=== PATIENT | male | born 1995 | race African-American/Black ===

== ENCOUNTER 2020-04-07 14:34 | Emergency (ER) | payer MEDICAID ==
[~2020-04-07] VITALS: Ht 177.8 cm; Wt 81.6 kg
[2020-04-07 14:46] VITALS: Ht 177.8 cm; Wt 81.6 kg
[2020-04-07 18:24] VITALS: BP 138/84
== END 2020-04-07 17:20 | disposition home or self-care (01) ==
LOC: ED 14:34
DX: S33.5XXA Sprain of ligaments of lumbar spine, initial encounter (principal); V43.52XA Car driver injured in collision with other type car in traffic accident, initial encounter; Y93.I9 Activity, other involving external motion; Y92.488 Other paved roadways as the place of occurrence of the external cause; Y99.8 Other external cause status